=== PATIENT | female | born 1940 | race Caucasian/White ===

== ENCOUNTER 2020-09-03 11:44 | Emergency (ER) | payer MEDICARE ==
[~2020-09-03] VITALS: Ht 152.4 cm; Wt 67.8 kg
--- NOTE | 2020-09-03 12:01 | NUR ---
UA CUP GIVEN IN TRIAGE
--- NOTE | 2020-09-03 12:21 | NUR ---
PT BIB FRIEND VIA POV. PER PT "I THINK I HAVE BLADDER INFECTION X3-4 WKS", RT FLANK PAIN, INCR FREQ, BURNING WITH URINATION, SEEN AT [facility] & "WAS TOLD I HAD AN INFECTION BUT THEY THOUGHT SOMETHING ELSE WAS GOING ON SO THEY SENT ME TO AN ER". PT ALSO REPORTS VOMITTING EARLY TODAY AT THE . PT DENIES ANY BLOOD IN URINE. PT RESTING IN [facility], NAD NOTED AT THIS TIME, WILL CONTINUE TO MONITOR.
[2020-09-03] MEDS ORDERED: MORPHINE SULFATE 4 MG/ML, 1ML ONE (12:27)
[2020-09-03] MEDS ORDERED: SODIUM CHLORIDE FLUSH 10ML SYR IVF ONE (12:30)
[2020-09-03] MEDS ORDERED: ONDANSETRON 2MG/ML, 2ML IVPush ONE (12:30)
[2020-09-03] MEDS ORDERED: MORPHINE SULFATE 4 MG/ML, 1ML IVPush PRN (12:30)
[2020-09-03] MEDS ORDERED: ONDANSETRON 2MG/ML, 2ML ONE (12:42)
[2020-09-03 13:16] LABS: BASOPHILS % (AUTO) 0 % (0-1); EOSINOPHILS % (AUTO) 0 % (1-7); LYMPHOCYTES % (AUTO) 7 % (22-44); MEAN CORPUSCULAR HEMOGLOBIN 30.8 pg (27.0-34.8); MEAN CORPUSCULAR HGB CONC 33.1 g/dL (32.4-35.8); MEAN PLATELET VOLUME 7.9 fL (7.4-10.4); MONOCYTES % (AUTO) 3 % (2-9); NEUTROPHILS % (AUTO) 90 % (42-75); PLATELET COUNT 262 x10^3/uL (130-400); RED BLOOD COUNT 5.24 x10^6/uL (3.82-5.3)
[2020-09-03 13:24] LABS: ALANINE AMINOTRANSFERASE 22 U/L (12-78); ALBUMIN 3.7 g/dL (3.4-5.0); ANION GAP 5 mmol/L (5-15); CALCIUM 8.9 mg/dL (8.5-10.1); CHLORIDE 111 mmol/L (98-107); CREATININE 1.03 mg/dL (0.55-1.02)
[2020-09-03 13:26] LABS: ALKALINE PHOSPHATASE 95 U/L (45-117); BILIRUBIN,TOTAL 1.8 mg/dL (0.2-1.0); TOTAL PROTEIN 7.5 g/dL (6.4-8.2)
[2020-09-03 13:42] LABS: MD NO
[2020-09-03 14:33] LABS: MICROSCOPIC INDICATED
[2020-09-03] MEDS ORDERED: KETOROLAC 30 MG/1 ML ONE (14:53)
[2020-09-03] MEDS ORDERED: KETOROLAC 30 MG/1 ML IVPush ONE (15:00)
[2020-09-03 17:35] VITALS: BP 136/91
== END 2020-09-03 17:38 | disposition home or self-care (01) ==
LOC: ED 14:25
DX: N13.2 Hydronephrosis with renal and ureteral calculous obstruction (principal); R10.31 Right lower quadrant pain; R11.2 Nausea with vomiting, unspecified; R30.9 Painful micturition, unspecified
CPT/HCPCS: 36415; 74176; 80053; 81001; 83690; 85025; 87077; 87086; 87186; 96374; 96375; 99284; J1885; J2270; J2405

== ENCOUNTER 2020-10-01 06:22 | Day surgery (SDC) | payer MEDICARE ==
[2020-09-28 13:37] VITALS: BP 129/77
[2020-09-28 15:34] LABS: MICROSCOPIC NOT IND
[~2020-10-01] VITALS: Ht 154.9 cm; Wt 67.1 kg
[2020-10-01] MEDS ORDERED: LACTATED RINGERS 1,000 ML IV SCH (07:00)
[2020-10-01] MEDS ORDERED: CHLORHEXIDINE 15 ML UDC MM ONE (07:00)
[2020-10-01] MEDS ORDERED: KETOROLAC 30 MG/1 ML ONE (08:52)
[2020-10-01] MEDS ORDERED: FENTANYL PF 100 MCG/2ML ONE (08:53)
[2020-10-01] MEDS ORDERED: ONDANSETRON 2MG/ML, 2ML ONE (09:38)
[2020-10-01] MEDS ORDERED: DEXAMETHASONE 4 MG/ML, 1ML ONE (09:38)
[2020-10-01] MEDS ORDERED: PROPOFOL 10 MG/ML, 20ML ONE (09:38)
[2020-10-01] MEDS ORDERED: CEFAZOLIN 1,000 MG ONE (09:38)
[2020-10-01] MEDS ORDERED: ONDANSETRON 2MG/ML, 2ML IV PRN (10:00)
[2020-10-01] MEDS ORDERED: OXYcodone 5 MG/5 ML ORAL.SOL UDC PO PRN ×2 (10:00→10:30)
[2020-10-01] MEDS ORDERED: LABETALOL 5MG/ML, 20ML IV PRN (10:30)
[2020-10-01] MEDS ORDERED: ALBUTEROL SULFATE 2.5 MG/3 ML NPPB PRN (10:30)
[2020-10-01] MEDS ORDERED: MEPERIDINE/PF 25MG/0.5ML IVPush PRN (10:30)
[2020-10-01] MEDS ORDERED: HYDROmorphone 1 MG/ML, 1ML INJ IVPush PRN (10:30)
[2020-10-01] MEDS ORDERED: ACETAMINOPHEN 325 MG TABLET PO PRN (10:30)
[2020-10-01] MEDS ORDERED: FENTANYL PF 100 MCG/2ML IV PRN (10:30)
[2020-10-01] MEDS ORDERED: PROMETHAZINE 25 MG/ML, 1ML IVPush PRN (10:30)
[2020-10-01] MEDS ORDERED: OMNIPAQUE 350 MG/ML, 50 ML BOTTLE ONE (11:00)
[2020-10-01] MEDS ORDERED: OXYB10TA26 PO (11:06)
[2020-10-01] MEDS ORDERED: PHEN-418 PO (11:07)
== END 2020-10-01 11:35 | disposition home or self-care (01) ==
LOC: OUT 06:22
PROVIDERS: ATTEND Urology
DX: N13.2 Hydronephrosis with renal and ureteral calculous obstruction (principal); N21.0 Calculus in bladder; G47.33 Obstructive sleep apnea (adult) (pediatric); Z20.828 Contact with and (suspected) exposure to other viral communicable diseases; Z79.891 Long term (current) use of opiate analgesic; Z79.899 Other long term (current) drug therapy; Z87.442 Personal history of urinary calculi
CPT/HCPCS: 52317; 52356; 74420; 81003; 82360; 87086; 88300; 93005; C1769; C2617; J0690; J1100; J1885; J2405; J2704; J3010; J7120; Q9967; U0003; 76000